=== PATIENT | female | born 1960 ===

== ENCOUNTER 2019-02-04 06:35 | Day surgery (SDC) | payer OTHER ==
[~2019-02-04 06:35] MED LIST: VITAMIN E400 UNI6
[2019-02-04] MEDS ORDERED: COLACE100 MG PO (09:57)
[2019-02-04] MEDS ORDERED: PERCOCET 5-3251 EACH PO (09:57)
== END 2019-02-04 13:50 | disposition home or self-care (01) ==
LOC: CIR.AMB 06:35
DX: K60.1 Chronic anal fissure (principal); K62.4 Stenosis of anus and rectum
CPT/HCPCS: 46200; 46505; 46700; J0585

== ENCOUNTER → 2020-08-06 06:58 | Outpatient (CLI) | payer OTHER ==
[~2020-08-06 06:58] MED LIST changes: +COLACE100 MG PO; +PERCOCET 5-3251 EACH PO
== END | disposition home or self-care (01) ==
LOC: LAB 06:58
PROVIDERS: ATTEND Internal Medicine Pulmonary Disease
DX: R05 Cough (principal); R06.02 Shortness of breath; R50.9 Fever, unspecified; Z20.828 Contact with and (suspected) exposure to other viral communicable diseases